=== PATIENT | female | born 2000 | race Two or more races ===

== ENCOUNTER 2025-07-11 12:05 | Emergency (ER) | payer BC, SELFPAY ==
[2025-07-11] VITALS (17 sets, daily range): BP systolic 122–151; BP diastolic 64–99; PULSE 77–111; RESP 12–23; TEMP 36.7–37.9; O2SAT 96–100; BMI 43.2
--- NOTE | 2025-07-11 12:26 | EDNOTE_ITS ---
<Statement entered by Ericka Tay MD - 07/27/25 17:41> As co-signing physician, I was present and available for consult prn. I concur with the plan and care as documented by the midlevel provider. ED General RME/HPI General Chief complaint: General Adult/Misc Complain Stated complaint: HGB 4.6, BLOOD TRANSFUSION, SENT BY PCP Time Seen by Provider: 07/11/25 12:23 Arrival date/time: 07/11/25 12:05 CC: Anemia HPI patient referred to the ER via PCP for low hemoglobin. States that she has had heavy menses particularly in the last month however the patient is known that she has had heavy menses has not been taking care of it in the past several years. Initially took care of it when she was in her teens but is ignored the meantime. Patient is not on iron pills patient denies chest pain shortness of breath or difficulty breathing but is complaining of weakness and fatigue with early exhaustion after several hours of walking or moving. Patient denies fever shortness of breath difficulty breathing painful urination or bloody urination. Related Data Previous Rx's ?Medication ?Instructions ?Recorded ferrous sulfate 325 mg (65 mg 325 mg PO QDAY #30 tabs 07/11/25 iron) tablet Allergies Allergy/AdvReac Type Severity Reaction Status Date / Time No Known Allergies Allergy Verified 07/11/25 12:08 Review of Systems Review of Systems Narrative Review of Systems: GEN: No fever, no chills, no weight loss EYES: No discharge, no visual changes, no pain HEENT: No ear pain, no congestion, no sore throat PULM: No shortness of breath, no cough, no congestion CV: No chest pain, no dyspnea on exertion, no palpitations GI: No nausea, no vomiting, no diarrhea, no pain, no constipation : No frequency, no urgency, no dysuria MUSC/SKEL: No joint pain, no back pain SKIN: No rash PSYCH: No hallucinations, no depression HEME/LYMPH: No easy bleeding or bruising tendencies NEURO: No weakness, no headache ED Exam Narrative Physical exam: [General: Morbidly obese not in any acute distress Head normocephalic HEENT: Eyes pupils are PERRLA EOMs are intact conjunctiva blanched mouth pale dry membranes uvula is midline. All other subsystems of HEENT are within acceptable limits Neck is supple nontender no JVD no edema Chest equal chest rise nontender to palpation Respiratory: Clear to auscultation no wheezes crackles or rubs CV: Rate rhythm is regular no murmurs rubs or clicks Abdomen is grossly distended secondary to body habitus soft nontender no masses positive bowel sounds all 4 quadrants Back: No CVA tenderness no spinous process tenderness from cervical spine thorac ic and lumbar spine Skin: Pale, intact no petechiae rash induration ulceration or crepitus Extremities: Moving all extremity against resistance cap refill less than 2 seconds neurosensory intact Neuro: Awake alert oriented x3 Glascow coma 15 no focal deficits] Course Quality Measures none Orders Category Date Time Status Saline [Insert IV] NOW Care 07/11/25 12:26 Completed Transfuse,blood/blood products NOW Care 07/11/25 13:37 Completed CBC Stat Lab 07/11/25 12:50 Completed CMP [Comprehensive Metabolic Panel] Stat Lab 07/11/25 12:50 Completed Path Review Blood Smear Stat Lab 07/11/25 12:50 Completed Type and Screen Stat Lab 07/11/25 12:50 Completed Urinalysis Stat Lab 07/11/25 23:38 Completed prbc [Red Blood Cells] Stat Lab 07/11/25 12:50 Completed Furosemide [Lasix Inj] Med 07/11/25 21:32 Discontinued 20 mg IVP X1 ONE Vital Signs Vital signs: Vital Signs Temperature 98.6 F 07/11/25 12:21 Pulse Rate 111 H 07/11/25 12:21 Respiratory Rate 20 07/11/25 12:21 Blood Pressure 149/99 H 07/11/25 12:21 Pulse Oximetry (%) 96 07/11/25 12:21 Oxygen Delivery Method Room Air 07/11/25 12:21 Discharge Plan Plan Patient Disposition: HOME (Self Care) Patient condition on transfer: Stable Prescriptions/Referrals Prescriptions/Med Rec: New ferrous sulfate 325 mg (65 mg iron) tablet 325 mg PO QDAY Qty: 30 1RF Referrals: Hai Tirado MD [Primary Care Provider, Family Practice] - In 1 week Problem List Clinical Impression: Anemia Patient/Caregiver Discharge Instructions Other Activity Instructions:: Follow-up with your PCP and get a referral to [facility] if necessary primarily follow-up on the anemia. Education Materials: Anemia, Iron Supplements Print Language: Portuguese Stand Alone Forms: Brandie Award Info., Work/School Release, Patient Portal Info Letter SHYANN/SONALI Supervising Physician LAKHWINDER Supervising Physician: Ej Barnes ENP [facility] Clinical Information Provided by: patient Medical Records reviewed [facility] Meds/Rx considered, not ordered None Labs/Rad/Tests considered, not ordered None Chronic Illness/Social Conditions which may negatively complicate care or outcome(s)-explain: other Explain: Dysfunctional vaginal bleeding anemia EKG EKG not done Labs Labs: interpreted by il Lab(s) Interpretation(s): CBC shows a leukocytosis of 15.5 hemoglobin of 5.5 hematocrit of 21.3 MCV at 55 MCH at 14.1 MCHC at 25.8 RDW standard deviation of 46.5 platelet count at 565. CMP shows a glucose elevated at 108 no other electrolyte imbalances renal impairment transaminitis or T. bili elevation. Imaging Imaging interpretation: none Medication Administration(s) none Medication Administration History Discontinued Medications Furosemide (Furosemide Inj 10 Mg/Ml Vial 2 Ml) 20 mg IVP X1 ONE Stop: 07/11/25 21:33 Last Admin: 07/12/25 00:24 Dose: 20 mg Documented By: COLLETTE
[2025-07-11 13:07] LABS: Basophils # (Auto) 0.1 Thou/mm3 (0.0-0.2); Basophils % (Auto) 0 % (0-2.5); Eosinophils # (Auto) 0.3 Thou/mm3 (0.0-0.5); Eosinophils % (Auto) 2 % (0-10); Hematocrit 21.3 % (36.0-46.0); Immature Granulocytes Auto 0.09 Thou/mm3 (0.00-0.00); Lymphocytes # (Auto) 4.5 Thou/mm3 (1.0-4.8); Lymphocytes % (Auto) 29 % (10-50); Mean Corpuscular HGB Conc 25.8 g/dl (31.0-37.0); Mean Corpuscular Hemoglobin 14.1 pg (25.0-35.0); Mean Corpuscular Volume 55 fL (80-100); Monocytes # (Auto) 0.7 Thou/mm3 (0.0-0.8); Monocytes % (Auto) 4 % (0-12); Neutrophils # (Auto) 9.9 Thou/mm3 (1.8-7.7); Neutrophils % (Auto) 64 % (37-80); Nucleated Red Blood Cell # 0.02 Thou/mm3 (0.00-0.00); Nucleated Red Blood Cell % 0 /100 WBC (0); Platelet Count 565 Thou/mm3 (140-440); RDW Standard Deviation 46.5 fL (36.4-46.3); Red Blood Count 3.90 Miln/mm3 (4.00-5.20); White Blood Count 15.5 Thou/mm3 (3.6-11.0)
[2025-07-11 13:15] LABS: Hemoglobin 5.5 g/dL (12.0-16.0)
[2025-07-11 13:30] LABS: Alanine Aminotransferase 11 U/L (10-49); Albumin, Serum 4.9 gm/dL (3.5-5.0); Albumin/Globulin Ratio 1.8 (1.2-2.2); Alkaline Phosphatase 76 U/L (46-116); Anion Gap 11 (7-16); Aspartate Amino Transferase < 8 U/L (0-34); BUN/Creatinine Ratio 13 Ratio (12-20); Bilirubin,Total 0.4 mg/dL (0.3-1.2); Blood Urea Nitrogen 10 mg/dL (9-23); Calcium 9.5 mg/dL (8.3-10.6); Calcium (Corrected) 9.5 mg/dL (8.5-10.1); Carbon Dioxide 23.8 mMol/L (20.0-31.0); Chloride 105 mMol/L (98-107); Creatinine (Component) 0.8 mg/dL (0.6-1.3); Estimated Creatinine Clearance 163.8 mL/min (>60); Globulin 2.8 gm/dL (2.3-3.5); Glucose 108 mg/dL (74-106); Osmolality,Calculated 279 (275-295); Potassium 3.7 mMol/L (3.4-5.1); Sodium 140 mMol/L (136-145); Total Protein 7.7 gm/dL (5.7-8.2); eGFR > 60 See Note
[2025-07-11 13:42] LABS: Path Review Blood Smear Sent to Pathologist
[2025-07-11 23:42] LABS: Collection Type, Urine Clean Catch
[2025-07-11 23:57] LABS: Amorphous Crystals,Urine Present (Absent); Bacteria,Urine Rare; Bilirubin,Urine Negative (Negative); Blood,Urine Negative (Negative); Clarity,Urine Turbid (Clear/Hazy); Color,Urine Lt-Yellow (Lt Yel-Yel); Glucose, Urine Negative (Negative); Ketones,Urine Negative (Negative); Leukocyte Esterase,Urine Positive (Negative); Nitrite,Urine Negative (Negative); PH,Urine 6.5 (5.0-7.0); Protein,Urine Negative (Neg - Trace); RBC,Urine 3 /hpf (0-3); Specific Gravity,Urine 1.017 (1.001-1.035); Squamous Epithelial Cell,Urine 16 /hpf (0-5); Urobilinogen,Urine Negative mg/dL (0.0-1.0); WBC,Urine 8 /hpf (0-5)
[2025-07-12 00:22] VITALS: BP 131/81; PULSE 87; RESP 18; TEMP 37.1; O2SAT 100
[2025-07-12 00:24] VITALS: BP 131/81; PULSE 87
[2025-07-12] MEDS: FUROSEMIDE INJ 10 MG/ML VIAL 2 ML 20 MG IVP (00:24)
== END 2025-07-12 00:27 | disposition home or self-care (01) ==
PROVIDERS: Registered Nurse General Practice; Emergency Provider Emergency Medicine; PCP Family Medicine
DX: D50.0 Iron deficiency anemia secondary to blood loss (chronic) (principal)
CPT/HCPCS: 36415; 36430; 80053; 81001; 85025; 86850; 86900; 86901; 86923; 96374; 99282; J1938; P9016